=== PATIENT | male | born 1960 | race African-American/Black ===

== ENCOUNTER 2017-01-10 16:35 | Inpatient (IN) | payer OTHER ==
[~2017-01-10] VITALS: Ht 180.3 cm; Wt 100.8 kg
[~2017-01-10 16:35] MED LIST: ADVIL,NUPRIN,M200 MG PO; ALEVE220 MG PO; CLINDAMYCIN HC300 MG PO; DICYCLOMINE HCL20 MG PO; DILAUDID4 MG PO; GLIPIZIDE XL10 MG PO; GLUCOPHAGE1000 MG PO; LANTUS 10100 UNITS/ SC; LANTUS 3 M100 UNITS1 SC; LANTUS100 UNIT/1 SQ; LIPITOR80 MG PO; LISINOPRIL10 MG PO; LISINOPRIL20 MG PO; LYRICA100 MG PO; METFORMIN HCL1000 MG PO; MUCINEX600 MG PO; PANTOPRAZOLE SO40 MG PO; PERCOCET 5/31 TABLET PO; REGLAN10 MG PO; REGLAN5 MG PO; RELAFEN500 M1 PO; Reglan PO; ZESTRIL20 MG PO; ZOFRAN ODT4 MG PO; ZOFRAN4 MG PO
[2017-01-10 17:14] LABS: HEMATOCRIT 39.4 % (38.0-50.0); MCH 25.1 PG (29.0-34.0); MCHC 31.5 G/DL (30.0-36.0); MCV 79.6 FL (86-99); MEAN PLAT.VOLUME 10.1 uM^3 (9.0-12.4); PLATELET COUNT 272 K/uL (156-360); RED BLOOD COUNT 4.95 M/uL (4.00-5.50); WHITE BLOOD COUNT 18.9 K/uL (4.1-10.2)
[2017-01-10 17:28] LABS: CHLORIDE 104 mEq/L (99-109); POTASSIUM 4.9 mEq/L (3.7-5.4); SODIUM 138 mEq/L (136-147)
[2017-01-10 17:30] LABS: GLUCOSE 338 mg/dL (70-99)
[2017-01-10 17:32] LABS: ANION GAP 13 MEQ/L (2-14); TOTAL BILIRUBIN 0.3 mg/dL (0.0-1.0)
[2017-01-10 17:34] LABS: ALKALINE PHOSPHATASE 116 IU/L (3-129); GFR ESTIMATE (CALCULATED) > 59 mL/min/
[2017-01-10 17:35] LABS: UREA NITROGEN (BUN) 17 mg/dL (9-23)
[2017-01-10 19:10] LABS: CARBON DIOXIDE (BICARBONATE) 22.6 MEQ/L (20-31)
[2017-01-10 19:32] LABS: ADD MIUA? YES; BILIRUBIN NEGATIVE; BLOOD SMALL; COLOR YELLOW ((YELLOW)); GLUCOSE (STRIP) >=500; KETONES 5; LEUKOCYTES NEGATIVE; NITRITE NEGATIVE; PROTEIN (STRIP) 100; SPECIFIC GRAVITY 1.024 (1.000-1.030); UROBILINOGEN 0.2 MG/DL (0.2-1.0)
[2017-01-10 19:38] LABS: BACTERIA NONE SEEN /HPF; EPITHELIAL CELLS NONE SEEN /HPF; MUCUS TRACE /LPF; RED BLOOD CELLS 0-5 /HPF (0-5); UCUL ADDED? NO; WHITE BLOOD CELLS 0-5 /HPF (0-5)
[2017-01-10 21:05] LABS: POINT-OF-CARE METER ID UU14100415
[2017-01-10 21:48] VITALS: BP 172/74
[2017-01-11 00:43] LABS: CHLORIDE 107 mEq/L (99-109); POTASSIUM 5.3 mEq/L (3.7-5.4); SODIUM 139 mEq/L (136-147)
[2017-01-11 00:45] LABS: GLUCOSE 295 mg/dL (70-99)
[2017-01-11 00:46] LABS: ANION GAP 12 MEQ/L (2-14)
[2017-01-11 00:48] LABS: ALKALINE PHOSPHATASE 107 IU/L (3-129)
[2017-01-11 00:49] LABS: GFR ESTIMATE (CALCULATED) > 59 mL/min/; TOTAL BILIRUBIN 0.2 mg/dL (0.0-1.0)
[2017-01-11 00:50] LABS: UREA NITROGEN (BUN) 17 mg/dL (9-23)
[2017-01-11 03:06] LABS: POINT-OF-CARE USER ID BHSKTD
[2017-01-11 05:50] LABS: POINT-OF-CARE METER ID UU14188625; POINT-OF-CARE USER ID BHSKTD
[2017-01-11 07:20] LABS: ALKALINE PHOSPHATASE 89 IU/L (3-129); ANION GAP 9 MEQ/L (2-14); CHLORIDE 107 MEQ/L (99-109); GFR ESTIMATE (CALCULATED) > 59 mL/min/; GLUCOSE 232 mg/dL (70-99); POTASSIUM 4.3 MEQ/L (3.7-5.4); SAMPLE HEMOLYSIS CHECK 0; SAMPLE ICTERIC CHECK 0; SAMPLE LIPEMIA CHECK 0; SODIUM 138 MEQ/L (136-147); TOTAL BILIRUBIN 0.3 MG/DL (0.0-1.0); UREA NITROGEN (BUN) 19 mg/dL (9-23)
[2017-01-11 08:16] VITALS: BP 116/65
[2017-01-11 17:34] VITALS: BP 161/85
[2017-01-11 22:08] LABS: POINT-OF-CARE USER ID BHSKTD
[2017-01-12] VITALS: BP 152/79
[2017-01-12 05:51] LABS: POINT-OF-CARE USER ID BHSKTD
[2017-01-12 07:53] LABS: POINT-OF-CARE METER ID UU14188625
[2017-01-12 08:43] VITALS: BP 197/87
[2017-01-12 08:46] LABS: ANION GAP 11 MEQ/L (2-14); CHLORIDE 105 MEQ/L (99-109); GFR ESTIMATE (CALCULATED) > 59 mL/min/; GLUCOSE 194 mg/dL (70-99); POTASSIUM 4.1 MEQ/L (3.7-5.4); SAMPLE HEMOLYSIS CHECK 0; SAMPLE ICTERIC CHECK 0; SAMPLE LIPEMIA CHECK 0; SODIUM 137 MEQ/L (136-147); UREA NITROGEN (BUN) 15 mg/dL (9-23)
[2017-01-12 08:53] LABS: Estimated Average Glucose 306 mg/dL (70-123); HEMOGLOBIN A1c (GLYCOHEMOGLOB) 12.3 % HGB (Below 5.7)
[2017-01-12 09:11] LABS: HEMATOCRIT 36.9 % (38.0-50.0); MCH 24.7 PG (29.0-34.0); MCHC 30.6 G/DL (30.0-36.0); MCV 80.7 FL (86-99); PLATELET COUNT 238 K/uL (156-360); RBC DIS.WIDTH-CV 13.4 % (11.8-14.6); RBC DIS.WIDTH-SD 38.8 % (39-53); RED BLOOD COUNT 4.57 M/uL (4.00-5.50); WHITE BLOOD COUNT 23.6 K/uL (4.1-10.2)
[2017-01-12] MEDS ORDERED: LISINOPRIL20 MG PO (09:26)
[2017-01-12 12:15] VITALS: BP 188/98
[2017-01-12 16:02] VITALS: BP 149/80
[2017-01-12 16:09] VITALS: BP 143/79
[2017-01-12 17:38] LABS: POINT-OF-CARE METER ID UU14188625
[2017-01-12 21:18] LABS: POINT-OF-CARE METER ID UU14188625
[2017-01-12 23:33] VITALS: BP 148/77
[2017-01-13 07:36] VITALS: BP 146/70
[2017-01-13 09:03] LABS: HEMATOCRIT 36.8 % (38.0-50.0); MCH 24.6 PG (29.0-34.0); MCV 79.3 FL (86-99); MEAN PLAT.VOLUME 10.1 uM^3 (9.0-12.4); PLATELET COUNT 256 K/uL (156-360); RBC DIS.WIDTH-CV 13.2 % (11.8-14.6); RBC DIS.WIDTH-SD 37.4 % (39-53); RED BLOOD COUNT 4.64 M/uL (4.00-5.50); WHITE BLOOD COUNT 20.4 K/uL (4.1-10.2)
[2017-01-13 09:34] LABS: ANION GAP 10 MEQ/L (2-14); CHLORIDE 106 MEQ/L (99-109); GFR ESTIMATE (CALCULATED) > 59 mL/min/; POTASSIUM 3.7 MEQ/L (3.7-5.4); SAMPLE HEMOLYSIS CHECK 0; SAMPLE ICTERIC CHECK 0; SAMPLE LIPEMIA CHECK 0; SODIUM 139 MEQ/L (136-147); UREA NITROGEN (BUN) 12 mg/dL (9-23)
[2017-01-13 09:35] LABS: GLUCOSE 112 mg/dL (70-99)
[2017-01-13] MEDS ORDERED: LEVEMIR100 UNIT/2 SC (13:30)
[2017-01-13] MEDS ORDERED: AUGMENTIN875 MG PO (13:30)
[2017-01-13] MEDS ORDERED: BENTYL20 MG PO (13:30)
[2017-01-13] MEDS ORDERED: MUPIROCIN15 GM TP (13:30)
== END 2017-01-13 15:12 | disposition home or self-care (01) | DRG 593 ==
LOC: EME 16:35 → 5SOUTH 20:18 → EDOF 20:18 → 5SOUTH 21:26
PROVIDERS: Emergency Medicine; Family Medicine; Hospitalist; Nurse Practitioner Adult Health; Physician Assistant
PROC: 0HDNXZZ Extraction of Left Foot Skin, External Approach (ICD-10-PCS; principal; 2017-01-12)
DX: L97.522 Non-pressure chronic ulcer of other part of left foot with fat layer exposed (principal); E87.2 Acidosis; E11.65 Type 2 diabetes mellitus with hyperglycemia; E11.621 Type 2 diabetes mellitus with foot ulcer; E11.43 Type 2 diabetes mellitus with diabetic autonomic (poly)neuropathy; I16.0 Hypertensive urgency; K31.84 Gastroparesis; E83.52 Hypercalcemia; I25.10 Atherosclerotic heart disease of native coronary artery without angina pectoris
CPT/HCPCS: 73630; 74177; 80048; 80053; 81003; 82010; 82803; 82948; 83036; 83605; 83690; 85027; 87070; 87075; 87077; 87147; 87186; 87205; 99281; 99285; J0360; J0780; J1170; J1650; J1815; J1885; J2270; J2405; J2765; J7030

== ENCOUNTER 2017-06-26 15:01 | Inpatient (IN) | payer OTHER ==
[~2017-06-26] VITALS: Ht 180.3 cm; Wt 100.7 kg
[~2017-06-26 15:01] MED LIST changes: +AUGMENTIN875 MG PO; +BENTYL20 MG PO; +LEVEMIR100 UNIT/2 SC; +MUPIROCIN15 GM TP
[2017-06-26 15:19] LABS: POINT-OF-CARE METER ID UU13113778
[2017-06-26 17:13] LABS: BASOPHIL COUNT 0.1 K/uL (0-0.1); EOSINOPHIL (%) 0.4 % (0-5); EOSINOPHIL COUNT 0.1 K/uL (0-0.3); HEMATOCRIT 38.3 % (38.0-50.0); IMMATURE GRANULOCYTE (%) 0.2 % (0.0-0.7); INSTRUMENT ABS NEUTROPHIL CT 6.6 K/uL; LYMPHOCYTE COUNT 6.1 K/uL (1.0-2.8); MCH 24.9 PG (29.0-34.0); MCHC 31.3 G/DL (30.0-36.0); MCV 79.6 FL (86-99); MEAN PLAT.VOLUME 9.9 uM^3 (9.0-12.4); MONOCYTE (%) 7.4 % (3-12); NEUTROPHIL (%) 47.6 % (45-76); NEUTROPHIL COUNT 6.6 K/uL (1.8-6.4); PLATELET COUNT 267 K/uL (156-360); RED BLOOD COUNT 4.81 M/uL (4.00-5.50); WHITE BLOOD COUNT 13.9 K/uL (4.1-10.2)
[2017-06-26 17:23] LABS: CHLORIDE 103 mEq/L (99-109); POTASSIUM 4.6 mEq/L (3.7-5.4); SODIUM 137 mEq/L (136-147)
[2017-06-26 17:25] LABS: GLUCOSE 232 mg/dL (70-99)
[2017-06-26 17:26] LABS: ANION GAP 9 MEQ/L (2-14)
[2017-06-26 17:27] LABS: TOTAL BILIRUBIN 0.2 mg/dL (0.0-1.0)
[2017-06-26 17:28] LABS: ALKALINE PHOSPHATASE 90 IU/L (3-129)
[2017-06-26 17:29] LABS: GFR ESTIMATE (CALCULATED) > 59 mL/min/
[2017-06-26 17:30] LABS: UREA NITROGEN (BUN) 16 mg/dL (9-23)
[2017-06-26] MEDS ORDERED: LEVEMIR100 UNIT/2 SC (18:28)
[2017-06-26] MEDS ORDERED: ALEVE220 MG PO (18:29)
[2017-06-26] MEDS ORDERED: TYLENOL EXTRA500 MG PO (18:29)
[2017-06-26] MEDS ORDERED: PROTONIX40 MG PO (18:31)
[2017-06-26 20:52] VITALS: BP 162/70
[2017-06-26 21:26] LABS: POINT-OF-CARE METER ID UU14162508
[2017-06-27 00:02] VITALS: BP 142/66
[2017-06-27 03:51] VITALS: BP 176/87
[2017-06-27 06:18] LABS: POINT-OF-CARE METER ID UU14162508
[2017-06-27 07:11] LABS: Estimated Average Glucose 278 mg/dL (70-123); HEMOGLOBIN A1c (GLYCOHEMOGLOB) 11.3 % HGB (Below 5.7)
[2017-06-27 07:19] LABS: HEMATOCRIT 33.2 % (38.0-50.0); MCH 26.1 PG (29.0-34.0); MCHC 32.5 G/DL (30.0-36.0); MCV 80.2 FL (86-99); MEAN PLAT.VOLUME 10.5 uM^3 (9.0-12.4); PLATELET COUNT 231 K/uL (156-360); RBC DIS.WIDTH-CV 14.2 % (11.8-14.6); RBC DIS.WIDTH-SD 41.1 % (39-53); RED BLOOD COUNT 4.14 M/uL (4.00-5.50); WHITE BLOOD COUNT 12.7 K/uL (4.1-10.2)
[2017-06-27 07:49] LABS: ANION GAP 7 MEQ/L (2-14); CHLORIDE 107 MEQ/L (99-109); GFR ESTIMATE (CALCULATED) > 59 mL/min/; GLUCOSE 168 mg/dL (70-99); POTASSIUM 4.2 MEQ/L (3.7-5.4); SAMPLE HEMOLYSIS CHECK 0; SAMPLE ICTERIC CHECK 0; SAMPLE LIPEMIA CHECK 0; SODIUM 138 MEQ/L (136-147); UREA NITROGEN (BUN) 12 mg/dL (9-23)
[2017-06-27 07:51] VITALS: BP 138/74
[2017-06-27 12:03] LABS: POINT-OF-CARE METER ID UU14162508
[2017-06-27 16:32] VITALS: BP 137/73
[2017-06-27 17:22] LABS: POINT-OF-CARE METER ID UU14208750
[2017-06-27 22:35] LABS: POINT-OF-CARE METER ID UU14162508
[2017-06-27 23:14] VITALS: BP 138/70
[2017-06-28 06:21] LABS: HEMATOCRIT 32.5 % (38.0-50.0); MCH 25.8 PG (29.0-34.0); MCHC 32.3 G/DL (30.0-36.0); MCV 79.9 FL (86-99); MEAN PLAT.VOLUME 10.4 uM^3 (9.0-12.4); PLATELET COUNT 233 K/uL (156-360); RBC DIS.WIDTH-SD 40.8 % (39-53); RED BLOOD COUNT 4.07 M/uL (4.00-5.50); WHITE BLOOD COUNT 14.3 K/uL (4.1-10.2)
[2017-06-28 06:44] LABS: ANION GAP 9 MEQ/L (2-14); CHLORIDE 109 MEQ/L (99-109); GFR ESTIMATE (CALCULATED) > 59 mL/min/; SAMPLE HEMOLYSIS CHECK 0; SAMPLE ICTERIC CHECK 0; SAMPLE LIPEMIA CHECK 0; SODIUM 142 MEQ/L (136-147); UREA NITROGEN (BUN) 11 mg/dL (9-23); VANCOMYCIN, TROUGH 11.3 MCG/ML (10-20)
[2017-06-28 06:47] LABS: GLUCOSE 113 mg/dL (70-99)
[2017-06-28 06:48] LABS: POINT-OF-CARE METER ID UU14162508
[2017-06-28 06:50] LABS: ERTH.SED.RATE 10 MM/HR (0-20)
[2017-06-28 07:45] VITALS: BP 127/66
[2017-06-28 11:06] LABS: POINT-OF-CARE METER ID UU14162508
[2017-06-28 15:31] LABS: POINT-OF-CARE METER ID UU14162508
[2017-06-28 16:14] VITALS: BP 160/79
[2017-06-28 22:03] LABS: POINT-OF-CARE METER ID UU14162508
[2017-06-28 23:52] VITALS: BP 157/78
[2017-06-29 06:34] LABS: POINT-OF-CARE METER ID UU14162508
[2017-06-29 07:20] LABS: HEMATOCRIT 34.6 % (38.0-50.0); MCH 25.5 PG (29.0-34.0); MCHC 31.8 G/DL (30.0-36.0); MCV 80.1 FL (86-99); MEAN PLAT.VOLUME 10.7 uM^3 (9.0-12.4); PLATELET COUNT 253 K/uL (156-360); RBC DIS.WIDTH-CV 13.8 % (11.8-14.6); RBC DIS.WIDTH-SD 40.5 % (39-53); RED BLOOD COUNT 4.32 M/uL (4.00-5.50)
[2017-06-29 07:40] VITALS: BP 149/86
[2017-06-29 07:47] LABS: BASOPHIL COUNT 0.1 K/uL (0-0.1); EOSINOPHIL (%) 0.8 % (0-5); EOSINOPHIL COUNT 0.1 K/uL (0-0.3); IMMATURE GRANULOCYTE (%) 0.2 % (0.0-0.7); INSTRUMENT ABS NEUTROPHIL CT 5.5 K/uL; LYMPHOCYTE COUNT 7.3 K/uL (1.0-2.8); MONOCYTE (%) 6.6 % (3-12); MONOCYTE COUNT 0.9 K/uL (0-0.8); NEUTROPHIL (%) 39.7 % (45-76); NEUTROPHIL COUNT 5.5 K/uL (1.8-6.4)
[2017-06-29 07:48] LABS: ANION GAP 10 MEQ/L (2-14); CHLORIDE 106 MEQ/L (99-109); GFR ESTIMATE (CALCULATED) > 59 mL/min/; GLUCOSE 101 mg/dL (70-99); SAMPLE HEMOLYSIS CHECK 0; SAMPLE ICTERIC CHECK 0; SAMPLE LIPEMIA CHECK 0; SODIUM 143 MEQ/L (136-147); UREA NITROGEN (BUN) 12 mg/dL (9-23)
[2017-06-29 11:39] LABS: POINT-OF-CARE METER ID UU14162508
[2017-06-29 15:49] VITALS: BP 162/78
[2017-06-29 16:29] LABS: POINT-OF-CARE METER ID UU14208750
[2017-06-29 18:46] VITALS: BP 160/87
[2017-06-29 21:54] LABS: POINT-OF-CARE METER ID UU14208750
[2017-06-29 23:39] VITALS: BP 172/87
[2017-06-30 02:39] LABS: POINT-OF-CARE METER ID UU14208750
[2017-06-30 04:10] VITALS: BP 142/78
[2017-06-30 05:20] LABS: HEMATOCRIT 34.1 % (38.0-50.0); MCH 25.6 PG (29.0-34.0); MCHC 32.3 G/DL (30.0-36.0); MCV 79.5 FL (86-99); MEAN PLAT.VOLUME 10.6 uM^3 (9.0-12.4); PLATELET COUNT 259 K/uL (156-360); RBC DIS.WIDTH-CV 13.8 % (11.8-14.6); RBC DIS.WIDTH-SD 39.6 % (39-53); RED BLOOD COUNT 4.29 M/uL (4.00-5.50); WHITE BLOOD COUNT 16.7 K/uL (4.1-10.2)
[2017-06-30 05:46] LABS: ANION GAP 7 MEQ/L (2-14); CHLORIDE 104 MEQ/L (99-109); GFR ESTIMATE (CALCULATED) > 59 mL/min/; GLUCOSE 114 mg/dL (70-99); POTASSIUM 4.1 MEQ/L (3.7-5.4); SAMPLE HEMOLYSIS CHECK 0; SAMPLE ICTERIC CHECK 0; SAMPLE LIPEMIA CHECK 0; SODIUM 138 MEQ/L (136-147); UREA NITROGEN (BUN) 14 mg/dL (9-23)
[2017-06-30 06:20] LABS: POINT-OF-CARE METER ID UU14208750
[2017-06-30 06:44] LABS: BASOPHIL COUNT 0.1 K/uL (0-0.1); EOSINOPHIL COUNT 0.2 K/uL (0-0.3); IMMATURE GRANULOCYTE (%) 0.4 % (0.0-0.7); IMMATURE GRANULOCYTE COUNT 0.1 K/uL; INSTRUMENT ABS NEUTROPHIL CT 6.4 K/uL; LYMPHOCYTE COUNT 8.9 K/uL (1.0-2.8); MONOCYTE (%) 6.5 % (3-12); MONOCYTE COUNT 1.1 K/uL (0-0.8); NEUTROPHIL (%) 38.4 % (45-76); NEUTROPHIL COUNT 6.4 K/uL (1.8-6.4); PLAT.SUFFICIENCY ADEQUATE
[2017-06-30 07:45] VITALS: BP 166/80
[2017-06-30 12:10] VITALS: BP 175/77
[2017-06-30 12:27] LABS: POINT-OF-CARE METER ID UU14208750
[2017-06-30 13:54] LABS: POINT-OF-CARE METER ID UU13113675
[2017-06-30 14:49] LABS: POINT-OF-CARE METER ID UU13113675
[2017-06-30 16:45] VITALS: BP 184/85
[2017-06-30 16:57] LABS: POINT-OF-CARE METER ID UU14162508
[2017-06-30 19:25] VITALS: BP 176/77
[2017-06-30 22:00] LABS: POINT-OF-CARE METER ID UU14208750
[2017-07-01 00:27] VITALS: BP 154/84
[2017-07-01 04:44] VITALS: BP 191/93
[2017-07-01 06:15] LABS: POINT-OF-CARE METER ID UU14162508
[2017-07-01 06:27] LABS: HEMATOCRIT 34.1 % (38.0-50.0); MCH 24.8 PG (29.0-34.0); MCHC 30.8 G/DL (30.0-36.0); MCV 80.4 FL (86-99); MEAN PLAT.VOLUME 10.1 uM^3 (9.0-12.4); PLATELET COUNT 272 K/uL (156-360); RBC DIS.WIDTH-CV 14.1 % (11.8-14.6); RBC DIS.WIDTH-SD 41.1 % (39-53); RED BLOOD COUNT 4.24 M/uL (4.00-5.50); WHITE BLOOD COUNT 17.8 K/uL (4.1-10.2)
[2017-07-01 06:55] LABS: ANION GAP 10 MEQ/L (2-14); CHLORIDE 103 MEQ/L (99-109); GFR ESTIMATE (CALCULATED) > 59 mL/min/; GLUCOSE 242 mg/dL (70-99); POTASSIUM 4.2 MEQ/L (3.7-5.4); SAMPLE HEMOLYSIS CHECK 0; SAMPLE ICTERIC CHECK 0; SAMPLE LIPEMIA CHECK 0; SODIUM 139 MEQ/L (136-147); UREA NITROGEN (BUN) 19 mg/dL (9-23)
[2017-07-01 07:03] LABS: EOSINOPHIL (%) 0 % (0-5); IMMATURE GRANULOCYTE (%) 0.7 % (0.0-0.7); IMMATURE GRANULOCYTE COUNT 0.1 K/uL; INSTRUMENT ABS NEUTROPHIL CT 8.8 K/uL; LYMPHOCYTE COUNT 7.8 K/uL (1.0-2.8); MONOCYTE (%) 5.8 % (3-12); NEUTROPHIL (%) 49.6 % (45-76); NEUTROPHIL COUNT 8.8 K/uL (1.8-6.4)
[2017-07-01 07:20] VITALS: BP 132/70
[2017-07-01 11:10] VITALS: BP 168/83
[2017-07-01 11:26] LABS: POINT-OF-CARE METER ID UU14162508
[2017-07-01] MEDS ORDERED: KEFLEX250 MG PO (14:18)
[2017-07-01] MEDS ORDERED: PERCOCET 5/31 TABLET PO (14:21)
[2017-07-01 16:23] LABS: POINT-OF-CARE METER ID UU14162508
== END 2017-07-01 16:30 | disposition home or self-care (01) | DRG 617 ==
LOC: EME 15:01 → EDOF 18:55 → 2EAST 18:55 → CANRESERV 18:57 → ENRESERV 18:57 → 2EAST 20:31
PROVIDERS: Emergency Medicine; Hospitalist; Internal Medicine
PROC: 0Y6Q0Z0 Detachment at Left 1st Toe, Complete, Open Approach (ICD-10-PCS; principal; 2017-06-30)
DX: E11.69 Type 2 diabetes mellitus with other specified complication (principal); M86.172 Other acute osteomyelitis, left ankle and foot; L03.116 Cellulitis of left lower limb; L97.529 Non-pressure chronic ulcer of other part of left foot with unspecified severity; K21.9 Gastro-esophageal reflux disease without esophagitis; N18.9 Chronic kidney disease, unspecified; I12.9 Hypertensive chronic kidney disease with stage 1 through stage 4 chronic kidney disease, or unspecified chronic kidney disease; E78.5 Hyperlipidemia, unspecified; E11.42 Type 2 diabetes mellitus with diabetic polyneuropathy; E11.621 Type 2 diabetes mellitus with foot ulcer; E11.22 Type 2 diabetes mellitus with diabetic chronic kidney disease; E11.65 Type 2 diabetes mellitus with hyperglycemia; Z79.4 Long term (current) use of insulin; N17.9 Acute kidney failure, unspecified; M54.5 Low back pain; G89.29 Other chronic pain; G62.9 Polyneuropathy, unspecified; L30.9 Dermatitis, unspecified; L03.115 Cellulitis of right lower limb; M19.90 Unspecified osteoarthritis, unspecified site; I25.10 Atherosclerotic heart disease of native coronary artery without angina pectoris; Z91.19 Patient's noncompliance with other medical treatment and regimen
CPT/HCPCS: 71250; 73630; 73720; 80048; 80053; 80202; 82948; 83036; 83605; 85025; 85027; 85651; 86140; 87040; 87070; 87075; 87077; 87147; 87186; 87205; 88305; 88311; 93971; 99281; 99285; C9113; J0360; J1170; J1644; J1815; J2250; J2405; J2543; J2550; J2765; J3010; J3370; J7030; J7050; S0020